=== PATIENT | female | born 1940 | race Caucasian/White ===

== ENCOUNTER 2017-09-12 13:44 | Emergency (ER) | payer OTHER ==
[~2017-09-12] VITALS: Ht 165.1 cm; Wt 68.0 kg
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
[2017-09-12 14:22] LABS: ABSOLUTE BASOPHIL COUNT 0 /CUMM (0.0-0.2); ABSOLUTE EOSINOPHIL COUNT 0.1 /CUMM (0.0-0.7); ABSOLUTE GRANULOCYTE CT 5.4 /CUMM (1.4-6.5); ABSOLUTE LYMPH COUNT 2.1 /CUMM (1.2-3.4); ABSOLUTE MONOCYTE COUNT 0.8 /CUMM (0.10-0.60); BASOPHIL % 0.5 % (0.0-2.0); EOSINOPHIL % 0.7 % (0-5); GRANULOCYTE % 64.5 % (42.2-75.2); HEMATOCRIT 31.8 % (37-47); MEAN CORPUSCULAR HGB 30.6 PG (27.0-31.0); MEAN CORPUSCULAR HGB CONC 33.8 G/DL (33.0-37.0); MEAN CORPUSCULAR VOLUME 90.6 FL (81.0-99.0); MEAN PLATELET VOLUME 6.3 FL (7.4-10.4); PLATELET COUNT 270 /CUMM (130-400); RBC DISTRIBUTION WIDTH 13.9 % (11.5-14.5); RED BLOOD CELL CT 3.51 /CUMM (4.20-5.40); WHITE BLOOD CELL COUNT 8.4 /CUMM (4.8-10.8)
[2017-09-12] MEDS ORDERED: CRESTOR40 M2 PO (17:44)
[2017-09-12] MEDS ORDERED: ANASTROZOLE1 M1 PO (17:44)
[2017-09-12] MEDS ORDERED: LOSARTAN POTASS25 M1 PO (17:44)
[2017-09-12] MEDS ORDERED: DONEPEZIL HCL10 M1 PO (18:02)
[2017-09-12] MEDS ORDERED: SERTRALINE HCL50 MG PO (18:02)
[2017-09-12] MEDS ORDERED: SERTRALINE HCL25 MG PO (18:03)
[2017-09-12] MEDS ORDERED: FEROSUL220 MG/5 M PO (18:07)
[2017-09-12] MEDS ORDERED: CALTRATE 600 +1 EACH PO (18:07)
[2017-09-12] MEDS ORDERED: DIVALPROEX SOD250 M2 PO (18:08)
[2017-09-12] MEDS ORDERED: LORAZEPAM0.5 M1 PO (18:16)
[2017-09-12] MEDS ORDERED: MACROBID 100 M100 MG PO (18:56)
[2017-09-12] MEDS ORDERED: DEPAKOTE ER250 M1 PO (18:56)
[2017-09-12 19:10] VITALS: BP 147/85
[2017-09-13] MEDS ORDERED: DEPAKOTE250 M1 PO (09:59)
== END 2017-09-12 19:09 ==
LOC: ERH 13:44
PROVIDERS: Internal Medicine
DX: N39.0 Urinary tract infection, site not specified (principal); G30.9 Alzheimer's disease, unspecified
CPT/HCPCS: 80307; 81001; 87086

== ENCOUNTER 2017-11-16 11:24 | Observation (INO) | payer OTHER, MEDICARE ==
[~2017-11-16] VITALS: Ht 152.4 cm; Wt 54.4 kg
[~2017-11-16 11:24] MED LIST: ANASTROZOLE1 M1 PO; CALTRATE 600 +1 EACH PO; CRESTOR40 M2 PO; DEPAKOTE ER250 M1 PO; DEPAKOTE250 M1 PO; DEPAKOTE500 M1 PO; DIVALPROEX SOD250 M2 PO; DONEPEZIL HCL10 M1 PO; FEROSUL220 MG/5 M PO; LORAZEPAM0.5 M1 PO; LOSARTAN POTASS25 M1 PO; MACROBID 100 M100 MG PO; SERTRALINE HCL25 MG PO; SERTRALINE HCL50 MG PO
--- NOTE | 2017-11-16 11:55 | ED AMS/SEIZURE/WEAK/DIZZY ---
See Addendum History of Present Illness General Chief Complaint: Altered Mental Status Stated Complaint: AMS Source: family, old records, EMS Exam Limitations: dementia, nonverbal Vital Signs & Intake/Output Vital Signs & Intake/Output Vital Signs Date Time Temp Pulse Resp B/P B/P Pulse O2 O2 Flow FiO2 Mean Ox Delivery Rate 11/18 612 98.1 78 18 146/65 98 Room Air 11/18 0023 80 18 129/86 96 Room Air 11/17 2100 98.0 87 20 144/64 96 Room Air 11/17 1837 90 18 145/67 95 Room Air / 1541 97.0 72 18 145/72 95 Room Air 11/17 1306 97.0 63 18 164/64 92 Room Air Allergies Coded Allergies: lactose (PER PAPERWORK FROM FACILITY 09/12/17) Reconcile Medications Anastrozole 1 MG TABLET 1 TAB PO DAILY BREAST CANCER (Reported) Calcium Carbonate/Vitamin D3 (Caltrate 600 + D Tablet) (Unknown Strength) TABLET (Unknown Dose) PO BID SUPPLEMENT (Reported) Divalproex Sodium (Depakote) 500 MG TABLET.DR 1 TAB PO BID MENTAL HEALTH ( Reported) Donepezil HCl 10 MG TABLET 1 TAB PO DAILY MEMORY (Reported) Ferrous Sulfate (Ferosul) 220 MG (44 MG IRON)/5 ML SOLUTION 330 MG PO DAILY SUPPLEMENT (Reported) Lorazepam 0.5 MG TABLET 0.5 TAB PO BID PRN ANXIETY (Reported) Losartan Potassium 25 MG TABLET 1 TAB PO DAILY BP (Reported) Rosuvastatin Calcium (Crestor) 40 MG TABLET 1 TAB PO DAILY CHOLESTEROL ( Reported) Sertraline HCl 50 MG TABLET 1.5 TAB PO DAILY MENTAL HEALTH (Reported) Triage Note: RECEIVED 77 YO FEMALE BIBA FROM [facility], DEMENTIA ALCAZAR. PT WAS FOUND ON FLOOR THIS AM NEXT TO BED. ACCORDING TO SOUND ASSISTANT REPORT, PT HAS NO OBVIOUS INJURY. PT ARRIVES CONFUSED, NOT RESPONDING TO COMMAND. ACCORDING TO DAUGHTER, PT WAS HERE 2 DAYS AGO AND DISCHARGED BACK TO FACILITY. DAUGHTER STATES THIS HAS BEEN HER BASELINE MENTAL STATUS LATELY. Triage Nurses Notes Reviewed? yes Onset: Abrupt Duration: day(s): (1), constant Timing: recent history Injury Environment: home Severity: moderate Severity Numbers: 1 No Modifying Factors: none Associated Symptoms: DENIES HPI: 77-year-old female history of dementia presents after she had an unwitnessed fall found next to her bed this morning. Patient was seen over the weekend for a similar episode. Family is at bedside, they state she was easily started on Ativan 0.5 mg twice a day for agitation and aggression towards other group home residents and that since then she has been more lethargic and non-verbal. No obvious injury from the fall today she had a unremarkable workup performed over the weekend from her previous fall however the family states that they do not believe she is safe at the assisted living she is currently at, secondary to her falls and dementia (Kahlil Jj) Past History Travel History Traveled to [place] past 21 day No Medical History Any Pertinent Medical History? see below for history Neurological: dementia, Parkinson's disease EENT: NONE Cardiovascular: hypertension, hyperlipidemia Respiratory: NONE Gastrointestinal: NONE Hepatic: NONE Renal: NONE Musculoskeletal: NONE Psychiatric: NONE Endocrine: NONE Blood Disorders: anemia Cancer(s): MALIGNANT NEOPLASM OF BREAST Surgical History Surgical History: non-contributory Psychosocial History What is your primary language Albanian Tobacco Use: Never used Family History Hx Contributory? No (Kahlil Jj) Review of Systems Review of Systems Constitutional: Reports: see HPI. Comments Review of systems: Obtained from the patient's daughter and family Constitutional, no chills no fever, (+) malaise HEENT: no sore throat no congestion Cardiovascular: No chest pain Skin: no rashes, no change in skin Respiratory: No dyspnea no cough GI: No nausea no vomiting, no diarrhea, :no frequency Muscle skeletal: No joint pain, no back pain Neurologic: , no headache Heme/endocrine: No bruising (Kahlil Jj) Physical Exam Physical Exam General Appearance: cachetic Comments: Cachectic female in no acute distress HEENT: Normal EENT exam; PERRL, EOMI, no nystagmus. HEAD is atraumatic. moist mucous membranes. Neck: Supple, nontender no signs of trauma no ecchymosis normal range of motion without pain or tenderness Back: No signs of trauma or ecchymosis Nontender, no CVA tenderness. Full range of motion Cardiovascular: Regular rate and rhythms no murmurs rubs Respiratory: Chest nontender.There were no bony deformities, no asymmetry. No respiratory distress. Patient speaking in full complete sentences. Breath sounds clear to auscultation bilaterally: NO W/R/R Abdomen: Soft, nontender nondistended, no appreciable organomegaly. Normal bowel sounds. No rebound/guarding, Extremity: No edema, full range of motion of extremities, normal and equal pulses bilaterally, 5 out of 5 strength noted to bilateral upper and lower extremities Neuro: Alert oriented x0, motor sensory normal, There were no obvious focal neurologic abnormalities. Skin: No appreciable rash on exposed skin, skin is warm and dry. Psych: Mood and affect is normal, memory and judgment is normal. Core Measures ACS in differential dx? No CVA/TIA Diagnosis No Sepsis Present: No Sepsis Focused Exam Completed? No (Portillo PASCUAL,Kahlil) Progress Differential Diagnosis: arrythmia, anemia, CVA/stroke, dehydration, drug intoxication, electrolyte imbalance, GI bleed, hypoglycemia, intracranial Hem., intracranial mass/tumor, UTI/pyelo, vertebrobasilar insuff Plan of Care: Orders Procedure Date/time Status Discharge Patient 11/18 1016 Active Continuous Observation Monitor 11/18 0852 Active Theraputic Activities 15 Min 11/18 UNK Complete Neuromuscular Re-Ed 15Min Ea 11/18 UNK Complete Theraputic Activities 15 Min 11/17 UNK Complete MOBILITY GOAL STATUS 11/17 UNK Complete MOBILITY CURRENT STATUS 11/17 UNK Complete PT EVAL LOW COMPLEX 20 MIN 11/17 UNK Complete Current Medications Sig/Venus Start time Last Medication Dose Stop Time Status Admin Atorvastatin Calcium 40 MG 1700 11/17 1700 AC (Lipitor) Divalproex Sodium 500 MG BID 11/16 2200 AC 11/17 (Depakote) 2300 Donepezil HCl 10 MG DAILY 11/16 184 AC 11/18 (Aricept) 0836 Ferrous Sulfate 225 MG DAILY 11/16 184 AC Sertraline HCl 75 MG DAILY 11/16 184 AC (Zoloft) Anastrozole 1 MG DAILY 11/16 184 AC (Arimidex) Losartan Potassium 25 MG DAILY 11/16 184 AC (Cozaar) Labs ordered old records reviewed. I discussed with the patient'S daughter and family her CAT scan and lab results I discussed with them the esophageal mass on CT finding which they're unaware of patient is DNR and they're not wishing to seek treatment for this at this time Case management at bedside discussed options the family has an appointment with [facility] tomorrow which they would like to go to we'll have physical therapy see her in the morning as well 1600 pt resting in nad 1830 unable to obtain ekg as pt attempting to pinch staff, seth po ordedred. Case discussed with and signed out to Dr. Serrano at 9 PM pending case management physical therapy consult in the morning Diagnostic Imaging: Viewed by Me: CT Scan. Discussed w/RAD: CT Scan. Radiology Impression: PATIENT: ARLEEN MAURER PRESENT AGE: 77 PATIENT ACCOUNT NO: [id number] : 39 LOCATION: [facility] ORDERING PHYSICIAN: Kahlil PASCUAL SERVICE DATE: 11/16/17 EXAM TYPE: CAT - CT ABD & PELVIS W/O IV CONTRAS; CT CHEST WO IV CONTRAST EXAMINATION: CT OF CHEST, ABDOMEN AND PELVIS WITHOUT CONTRAST CLINICAL INFORMATION: Trauma status post fall with dementia. COMPARISON: None. TECHNIQUE: Multidetector volumetric imaging was performed from the superior aspect of the liver through the pubic symphysis. Sagittal and coronal reformatted images were obtained on the technologist's workstation. DLP: 429.88 mGy-cm FINDINGS: CHEST CT: Lungs are clear. No infiltrates effusions or lung masses are seen. A moderate-sized hiatal hernia is present. Atherosclerotic changes are present in the aorta with calcifications present. Calcifications are present also in the proximal great vessels. Moderate coronary artery calcification is present. No pleural effusions are seen. Examination of the chest wall demonstrates postoperative changes in the left breast. No suspicious masses are seen. Marked degenerative change is noted in the spine. ABDOMINAL CT: LIVER, GALLBLADDER, AND BILIARY TREE: The liver is normal in size, shape, and attenuation. No focal hepatic lesion or biliary ductal dilatation is present. The gallbladder is unremarkable with no evidence of radiopaque gallstones, gallbladder wall thickening, or obvious pericholecystic inflammatory changes. PANCREAS: Unremarkable. SPLEEN: Unremarkable. ADRENAL GLANDS: Unremarkable. KIDNEYS AND URETERS: The kidneys are normal in size, shape, and attenuation. No hydronephrosis, hydroureter, or calculi seen. No perinephric stranding. BLADDER: Unremarkable. GASTROINTESTINAL TRACT: Extensive diverticular changes are noted in the sigmoid with scattered diverticula seen throughout the remainder of the colon. There is no evidence of diverticulitis. The colon is decompressed with very little stool within it. There is no dilatation of small bowel or evidence of bowel obstruction. The appendix is not seen with certainty but there is no evidence to suggest appendicitis. ABDOMINAL WALL: No significant hernia is appreciated. LYMPH NODES: Normal. VASCULAR: Marked atherosclerotic calcifications are noted in the aorta with some milder calcifications in the iliofemoral vessels. PELVIC VISCERA: An anteverted uterus is present. Some calcifications are present and could represent fibroids. No free pelvic fluid is seen. OSSEOUS STRUCTURES: Marked degenerative changes are present in the spine with a compression fracture at L3 with anterior wedging. IMPRESSION: No evidence of acute trauma. Incidental note made of atherosclerotic changes, coronary calcifications, colonic diverticulosis and some possible uterine fibroids. DICTATED BY: Hugo Ly MD DATE/TIME DICTATED:11/16/171417 LIQUOR GRINDER MILL OPERATOR:PIERRE DATE/TIME TRANSCRIBED:1417 CONFIDENTIAL, DO NOT COPY WITHOUT APPROPRIATE AUTHORIZATION. < Electronically signed in Other Vendor System> SIGNED BY: Hugo Ly MD 11/16/17 1451, PATIENT: ARLEEN MAURER PRESENT AGE: 77 PATIENT ACCOUNT NO: [id number] : 39 LOCATION: [facility] ORDERING PHYSICIAN: Kahlil PASCUAL SERVICE DATE: 11/16/17 EXAM TYPE: CAT - CT ABD & PELVIS W/O IV CONTRAS; CT CHEST WO IV CONTRAST EXAMINATION: CT OF CHEST, ABDOMEN AND PELVIS WITHOUT CONTRAST CLINICAL INFORMATION: Trauma status post fall with dementia. COMPARISON: None. TECHNIQUE: Multidetector volumetric imaging was performed from the superior aspect of the liver through the pubic symphysis. Sagittal and coronal reformatted images were obtained on the technologist's workstation. DLP: 429.88 mGy-cm FINDINGS: CHEST CT: Lungs are clear. No infiltrates effusions or lung masses are seen. A moderate-sized hiatal hernia is present. Atherosclerotic changes are present in the aorta with calcifications present. Calcifications are present also in the proximal great vessels. Moderate coronary artery calcification is present. No pleural effusions are seen. Examination of the chest wall demonstrates postoperative changes in the left breast. No suspicious masses are seen. Marked degenerative change is noted in the spine. ABDOMINAL CT: LIVER, GALLBLADDER, AND BILIARY TREE: The liver is normal in size, shape, and attenuation. No focal hepatic lesion or biliary ductal dilatation is present. The gallbladder is unremarkable with no evidence of radiopaque gallstones, gallbladder wall thickening, or obvious pericholecystic inflammatory changes. PANCREAS: Unremarkable. SPLEEN: Unremarkable. ADRENAL GLANDS: Unremarkable. KIDNEYS AND URETERS: The kidneys are normal in size, shape, and attenuation. No hydronephrosis, hydroureter, or calculi seen. No perinephric stranding. BLADDER: Unremarkable. GASTROINTESTINAL TRACT: Extensive diverticular changes are noted in the sigmoid with scattered diverticula seen throughout the remainder of the colon. There is no evidence of diverticulitis. The colon is decompressed with very little stool within it. There is no dilatation of small bowel or evidence of bowel obstruction. The appendix is not seen with certainty but there is no evidence to suggest appendicitis. ABDOMINAL WALL: No significant hernia is appreciated. LYMPH NODES: Normal. VASCULAR: Marked atherosclerotic calcifications are noted in the aorta with some milder calcifications in the iliofemoral vessels. PELVIC VISCERA: An anteverted uterus is present. Some calcifications are present and could represent fibroids. No free pelvic fluid is seen. OSSEOUS STRUCTURES: Marked degenerative changes are present in the spine with a compression fracture at L3 with anterior wedging. IMPRESSION: No evidence of acute trauma. Incidental note made of atherosclerotic changes, coronary calcifications, colonic diverticulosis and some possible uterine fibroids. DICTATED BY: Hugo Ly MD DATE/TIME DICTATED:11/16/171417 LIQUOR GRINDER MILL OPERATOR:PIERRE DATE/TIME TRANSCRIBED:1417 CONFIDENTIAL, DO NOT COPY WITHOUT APPROPRIATE AUTHORIZATION. < Electronically signed in Other Vendor System> SIGNED BY: Hugo Ly MD 11/16/17 1451, PATIENT: ARLEEN MAURER PRESENT AGE: 77 PATIENT ACCOUNT NO: [id number] : 39 LOCATION: [facility] ORDERING PHYSICIAN: Kahlil PASCUAL SERVICE DATE: 11/16/17 EXAM TYPE: CAT - CT CERV SPINE WO IV CONTRAST; CT HEAD WO IV CONTRAST EXAMINATION: CT HEAD AND CERVICAL SPINE CLINICAL INFORMATION: Trauma status post fall. History dementia. COMPARISON: CT head 11/13/2017. TECHNIQUE: Drum Straightener images were obtained. CT acquisition of the head and cervical spine was performed without intravenous administration of contrast. Data was reformatted into multiplanar images at the acquisition workstation. DLP: 1015.12 mGy-cm. FINDINGS: Head: There is no acute intracranial hemorrhage or abnormal extra-axial collection. No intracranial mass effect or midline shift. Lateral and third ventricles are proportionate to the subarachnoid spaces. No hydrocephalus. There are ill-defined foci of hypoattenuation throughout the periventricular white matter that most likely represent a chronic manifestation of small vessel ischemia. Resendez-white matter differentiation is otherwise grossly preserved and there is no is acute territorial infarct. The calvarium and skull base are intact. Mastoid air cells and middle ear cavities are well-aerated. Visualized paranasal sinuses are well- aerated. Cervical spine: There is a slight anterolisthesis of C2 on C3 and C7 on T1 that appears to be related to advanced facet degenerative changes at these 2 levels. The C2 and C3 vertebral segments are chronically fused across the left C2-C3 facet joint. Vertebral body heights are preserved. There is no evidence of acute fracture. No abnormal prevertebral soft tissue swelling. Central disc osteophyte complexes cause indentation of the ventral thecal sac at multiple levels. There is at least moderate canal stenosis at the levels of C3-C4, C4-C5, and C5-C6. There are varying degrees of neuroforaminal encroachment related to uncovertebral joint spurring and facet degenerative change. Soft tissues of the neck are unremarkable. There is circumferential thickening within the esophagus at the cervicothoracic junction. Visualized lungs are clear. IMPRESSION: Head: No acute intracranial hemorrhage. There are numerous chronic small vessel ischemic changes within the periventricular white matter. No evidence of acute territorial infarct or hemorrhage. Cervical spine: No acute cervical spine fracture. There is circumferential thickening suggesting an esophageal mass at the cervicothoracic junction. A dedicated endoscopic evaluation or a fluoroscopic esophagram is recommended for better anatomic characterization of this finding. DICTATED BY: Andry Bermudez MD DATE/TIME DICTATED:11/16/171334 LIQUOR GRINDER MILL OPERATOR:PIERRE DATE/TIME TRANSCRIBED:11/16/171334 CONFIDENTIAL, DO NOT COPY WITHOUT APPROPRIATE AUTHORIZATION. <Electronically signed in Other Vendor System> SIGNED BY: Andry Bermudez MD 11/16/17 1345 Initial ED EKG: none Hand-Off Endorsed To: Gabo Serrano MD Endorsed Time: 2100 Pending: consult (case management, pt consult) (Kahlil Jj) Hand-Off Endorsed To: Fredis Pham MD Endorsed Time: 0700 Pending: consult (Gabo Serrano MD) Hand-Off Endorsed To: Russ Barrow DO Endorsed Time: 1500 Pending: consult (Fredis Pham MD) Departure Departure Condition: Stable Referrals: Xu Rider MD (PCP/Family) Departure Forms: Customer Survey General Discharge Information Observation Note Spoke With: Emma ARIAS,Ayo Place Patient In: ED Observation Rationale for Observation: My rational for observation is as follows gentle hydration, neuro checks, pt/ case management consult for possible placement (Kahlil Jj) Departure Clinical Impression Primary Impression: Dementia Secondary Impressions: Esophageal mass, Fall (Gabo Serrano MD) Departure Disposition: [facility] (AC[facility]) (Fredis Pham MD) Departure Comments 11/17/17 6:10 PM Patient was signed out to me by Dr. Pham at 3 PM. She is pending placement in a geriatric psychiatric center. She will be signed out to Dr. Serrano 11 PM. (Russ Barrow DO) ED Attending Observation Initial Observation Note: I have seen and personally examined ARLEEN MAURER on 11/16/17 at 2252. I agree with the current emergency department documentation. The disposition (admission or discharge) is uncertain at this time, she needs a period of observation for the following reason(s): pt with dementia, unsteady gait... merits PT and case management eval to consider placement. The ED Nurse caring for this patient has been personally informed as to what the patient is being observed for. (Gabo Serrano MD) Observation Re-Evaluation: I have reevaluated ARLEEN AMURER on 11/17/17 at 0718. The physical findings that support the continued need to observe this patient include [PT RESTING COMFORTABLY. AWAITING PT AND CASE MANAGEMENT DISPO.]. Patient refused to work with physical therapy. Patient will have a crisis consultation for geripsych and then elijah swill discuss with case management to decide disposition. Observation Discharge: I have reevaluated ARLEEN MAURER on 11/18/17 at 1016. The patient is: (): Stable for discharge (): To be admitted to Nursing Floor (): To be placed in Observation on Nursing Floor ([X]): For transfer to other facility The patient was being observed for [GERIPSYCH] As a result of that observation, I have determined [TRANSFER TOINPATIENT GERIPSYCH]. (Fredis Pham MD) merits PT and case management eval to consider placement. The ED Nurse caring for this patient has been personally informed as to what the patient is being observed for. (Gabo Serrano MD) Observation Re-Evaluation: I have reevaluated ARLEEN MAURER on 11/17/17 at 0718. The physical findings that support the continued need to observe this patient include [PT RESTING COMFORTABLY. AWAITING PT AND CASE MANAGEMENT DISPO.]. Patient refused to work with physical therapy. Patient will have a crisis consultation for geripsych and then elijah aguilar discuss with case management to decide disposition. (Fredis Pham MD) I agree with the current emergency department documentation. The disposition (admission or discharge) is uncertain at this time, she needs a period of observation for the following reason(s): pt with dementia, unsteady gait... merits PT and case management eval to consider placement. The ED Nurse caring for this patient has been personally informed as to what the patient is being observed for. (Gabo Serrano MD) Observation Re-Evaluation: I have reevaluated ARLEEN MAURER on 11/17/17 at 0718. The physical findings that support the continued need to observe this patient include [PT RESTING COMFORTABLY. AWAITING PT AND CASE MANAGEMENT DISPO.]. Patient refused to work with physical therapy. Patient will have a crisis consultation for geripsych and then elijah aguilar discuss with case management to decide disposition. (Fredis Pham MD) Patient refused to work with physical therapy. Patient will have a crisis consultation for geripsych and then elijah aguilar discuss with case management to decide disposition. (Fredis Pham MD)
--- NOTE | 2017-11-16 13:45 | CT SCAN REPORT ---
EXAMINATION: CT HEAD AND CERVICAL SPINE CLINICAL INFORMATION: Trauma status post fall. History dementia. COMPARISON: CT head 11/13/2017. TECHNIQUE: Rehabilitation Services Manager images were obtained. CT acquisition of the head and cervical spine was performed without intravenous administration of contrast. Data was reformatted into multiplanar images at the acquisition workstation. DLP: 1015.12 mGy-cm. FINDINGS: Head: There is no acute intracranial hemorrhage or abnormal extra-axial collection. No intracranial mass effect or midline shift. Lateral and third ventricles are proportionate to the subarachnoid spaces. No hydrocephalus. There are ill-defined foci of hypoattenuation throughout the periventricular white matter that most likely represent a chronic manifestation of small vessel ischemia. Resendez-white matter differentiation is otherwise grossly preserved and there is no is acute territorial infarct. The calvarium and skull base are intact. Mastoid air cells and middle ear cavities are well-aerated. Visualized paranasal sinuses are well-aerated. Cervical spine: There is a slight anterolisthesis of C2 on C3 and C7 on T1 that appears to be related to advanced facet degenerative changes at these 2 levels. The C2 and C3 vertebral segments are chronically fused across the left C2-C3 facet joint. Vertebral body heights are preserved. There is no evidence of acute fracture. No abnormal prevertebral soft tissue swelling. Central disc osteophyte complexes cause indentation of the ventral thecal sac at multiple levels. There is at least moderate canal stenosis at the levels of C3-C4, C4-C5, and C5-C6. There are varying degrees of neuroforaminal encroachment related to uncovertebral joint spurring and facet degenerative change. Soft tissues of the neck are unremarkable. There is circumferential thickening within the esophagus at the cervicothoracic junction. Visualized lungs are clear. IMPRESSION: Head: No acute intracranial hemorrhage. There are numerous chronic small vessel ischemic changes within the periventricular white matter. No evidence of acute territorial infarct or hemorrhage. Cervical spine: No acute cervical spine fracture. There is circumferential thickening suggesting an esophageal mass at the cervicothoracic junction. A dedicated endoscopic evaluation or a fluoroscopic esophagram is recommended for better anatomic characterization of this finding.
[2017-11-16 14:05] LABS: ABSOLUTE BASOPHIL COUNT 0 /CUMM (0.0-0.2); ABSOLUTE EOSINOPHIL COUNT 0 /CUMM (0.0-0.7); ABSOLUTE GRANULOCYTE CT 5.3 /CUMM (1.4-6.5); ABSOLUTE LYMPH COUNT 1.5 /CUMM (1.2-3.4); ABSOLUTE MONOCYTE COUNT 0.5 /CUMM (0.10-0.60); BASOPHIL % 0.3 % (0.0-2.0); EOSINOPHIL % 0.1 % (0-5); HEMATOCRIT 35.1 % (37-47); MEAN CORPUSCULAR HGB 30.5 PG (27.0-31.0); MEAN CORPUSCULAR HGB CONC 33.5 G/DL (33.0-37.0); MEAN CORPUSCULAR VOLUME 90.9 FL (81.0-99.0); MEAN PLATELET VOLUME 6.8 FL (7.4-10.4); PLATELET COUNT 240 /CUMM (130-400); RBC DISTRIBUTION WIDTH 14.4 % (11.5-14.5); RED BLOOD CELL CT 3.86 /CUMM (4.20-5.40); WHITE BLOOD CELL COUNT 7.3 /CUMM (4.8-10.8)
--- NOTE | 2017-11-16 14:51 | CT SCAN REPORT ---
EXAMINATION: CT OF CHEST, ABDOMEN AND PELVIS WITHOUT CONTRAST CLINICAL INFORMATION: Trauma status post fall with dementia. COMPARISON: None. TECHNIQUE: Multidetector volumetric imaging was performed from the superior aspect of the liver through the pubic symphysis. Sagittal and coronal reformatted images were obtained on the technologist's workstation. DLP: 429.88 mGy-cm FINDINGS: CHEST CT: Lungs are clear. No infiltrates effusions or lung masses are seen. A moderate-sized hiatal hernia is present. Atherosclerotic changes are present in the aorta with calcifications present. Calcifications are present also in the proximal great vessels. Moderate coronary artery calcification is present. No pleural effusions are seen. Examination of the chest wall demonstrates postoperative changes in the left breast. No suspicious masses are seen. Marked degenerative change is noted in the spine. ABDOMINAL CT: LIVER, GALLBLADDER, AND BILIARY TREE: The liver is normal in size, shape, and attenuation. No focal hepatic lesion or biliary ductal dilatation is present. The gallbladder is unremarkable with no evidence of radiopaque gallstones, gallbladder wall thickening, or obvious pericholecystic inflammatory changes. PANCREAS: Unremarkable. SPLEEN: Unremarkable. ADRENAL GLANDS: Unremarkable. KIDNEYS AND URETERS: The kidneys are normal in size, shape, and attenuation. No hydronephrosis, hydroureter, or calculi seen. No perinephric stranding. BLADDER: Unremarkable. GASTROINTESTINAL TRACT: Extensive diverticular changes are noted in the sigmoid with scattered diverticula seen throughout the remainder of the colon. There is no evidence of diverticulitis. The colon is decompressed with very little stool within it. There is no dilatation of small bowel or evidence of bowel obstruction. The appendix is not seen with certainty but there is no evidence to suggest appendicitis. ABDOMINAL WALL: No significant hernia is appreciated. LYMPH NODES: Normal. VASCULAR: Marked atherosclerotic calcifications are noted in the aorta with some milder calcifications in the iliofemoral vessels. PELVIC VISCERA: An anteverted uterus is present. Some calcifications are present and could represent fibroids. No free pelvic fluid is seen. OSSEOUS STRUCTURES: Marked degenerative changes are present in the spine with a compression fracture at L3 with anterior wedging. IMPRESSION: No evidence of acute trauma. Incidental note made of atherosclerotic changes, coronary calcifications, colonic diverticulosis and some possible uterine fibroids.
--- NOTE | 2017-11-17 14:31 | ED PSYCH CRISIS CONSULTATION ---
Crisis Consult Basic Assessment Date of Consult: 11/17/17 Responsible Person/Accompanied By: Zoie Duckworth Insurance Authorization: Insurance #1: Insurance name: MEDICARE A Phone number: Policy number: [id number] Group number: Authorization number: ED Provider: Patient's ED Provider: Kahlil Jj Primary Care Physician: Patient's PCP: Adry ARIAS,Xu Guillen PCP's Chief Complaint: Altered Mental Status Present Illness: Pt is a 77 W/w/f who lives in a [facility] dementia care unit. Pt presents to the ED after an unwitnessed fall found next to her bed this yesterday. Pt had a similar episode over the weekend. Pt has been agitated, lethargic, decrease eating, decreased talking and falling in the context of multiple meds changes. Family is at her bedside and supportive. Pt has been medically cleared. MD Rashmi (neurologist) / Nallely PASCUAL , recent med change 11/11/17. pt was started on ativan and depakote increased. Seen previously 10/14/17 seroquel, zoloft and depakote. Pt was put on Ativan Thursday and pt started having increase falls and decrease functioning. Pt has a mental health hx which her dtr reports as therapist and maybe a Pcp prescribing meds for mood . Pt's mother also had a mental health hx . No known inpt stays. Pt's dtr Zoie fred, reports she is in tx at for bipolar and has been inpt. Dtr is currently on meds and in tx, her providers are aware of her stressors. Dtr has the support of a family friend named Pranav. He is supportive to pt and her dtr and has an understanding of dementia and levels of care. He assists with pt's finances. He is willing to increase pt's care and feels pt has funds for her care. Pt does not have substance abuse hx . Today, pt is in bed with her eyes closed, unable to speak, refusing meds and physical therapy. She was given tylenol and fluids. She is agitated in bed, pulling on her clothing and covers. Pt does not have an active UTI. ON 11/08/17 Pt's friend Pranav visited with her at [facility]. She spoke with him, joked with him and at times spoke words he was not clear of. She did properly verbalize good bye to Pranav, and when he got ready to leave and asked for a kiss. Pt is on Ativan 0.5mg po BID PRN anxiety which seem to have started Wed. Family reports assisted living had asked them to address pt's agitation and aggression with personal care so pt was brought to MD and med were started. It is unclear why family is not using Assited living provider. difficult to assess SI/HI/AH/VH. Discussed pt with MD Rachell who, agreed with pt's need for available [facility] bed. Stop Ativan. Patient's Address: [place] [address] Other Phone Number: Family/Informants Interviewed: pt unable to participate (dtr is POA and Friend helps) Allergies - Coded Allergies: lactose (PER PAPERWORK FROM FACILITY 09/12/17) Current Medications - Scheduled Medications Anastrozole 1 MG TABLET 1 TAB PO DAILY BREAST CANCER #28 (Reported) Entered as Reported by Ayala Geronimo on 09/12/17 174 Calcium Carbonate/Vitamin D3 (Caltrate 600 + D Tablet) (Unknown Strength) TABLET (Unknown Dose) PO BID SUPPLEMENT (Reported) Entered as Reported by Ayala Geronimo on 09/12/17 1807 Divalproex Sodium (Depakote) 500 MG TABLET.DR 1 TAB PO BID MENTAL HEALTH ( Reported) Entered as Reported by Ayala Geronimo on 11/13/17 2227 Donepezil HCl 10 MG TABLET 1 TAB PO DAILY MEMORY #28 (Reported) Entered as Reported by Ayala Geronimo on 09/12/17 1802 Ferrous Sulfate (Ferosul) 220 MG (44 MG IRON)/5 ML SOLUTION 330 MG PO DAILY SUPPLEMENT (Reported) Entered as Reported by Ayala Geronimo on 09/12/17 180 Losartan Potassium 25 MG TABLET 1 TAB PO DAILY BP #28 (Reported) Entered as Reported by Ayala Geronimo on 09/12/17 1744 Rosuvastatin Calcium (Crestor) 40 MG TABLET 1 TAB PO DAILY CHOLESTEROL #28 ( Reported) Entered as Reported by Ayala Geronimo on 09/12/17 1744 Sertraline HCl 50 MG TABLET 1.5 TAB PO DAILY MENTAL HEALTH #28 (Reported) Entered as Reported by Ayala Geronimo on 09/12/17 1802 Scheduled PRN Medications Lorazepam 0.5 MG TABLET 0.5 TAB PO BID PRN ANXIETY #28 (Reported) Entered as Reported by Ayala Geronimo on 09/12/17 1816 Laboratory Results: Laboratory Tests 11/16/17 1545: Urinalysis LIGHT H, Urine Color YEL, Urine Clarity HAZY H, Urine pH 6.0, Ur Specific [place] >= 1.030, Urine Protein 30 H, Urine Ketones 15 H, Urine Nitrite NEG, Urine Bilirubin NEG@ICTO, Urine Urobilinogen 0.2, Ur Leukocyte Esterase NEG, Ur Microscopic SEDIMENT EXAMINED, Urine RBC 3-5, Urine WBC 10-15 H, Ur Epithelial Cells MOD H, Urine Bacteria RARE H, Granular Casts 1-3 H, Urine Mucus FEW, Urine Hemoglobin MOD H, Urine Glucose NEG Microbiology 11/16 2022 URINE ROUT: Urine Culture - CAN Cancelled: Cancelled via OE: Error 11/16 1545 URINE ROUT: Urine Culture - RES (Rimma Sawyer LCSW) Past History Past Medical History Neurological: dementia, Parkinson's disease EENT: NONE Cardiovascular: hypertension, hyperlipidemia Respiratory: NONE Gastrointestinal: NONE Hepatic: NONE Renal: NONE, urinary incontinence Musculoskeletal: NONE Psychiatric: NONE Endocrine: NONE Blood Disorders: anemia Cancer(s): pancreatic cancer, MALIGNANT NEOPLASM OF BREAST Past Surgical History Surgical History: non-contributory Psychosocial History Physical Limitations (Interventions): decreased walking this week Psychiatric Treatment History Psych Treatment Psychiatric Treatment No Inpatient Treatment No Diagnosis by History: dementia Substance Use/Abuse History Drug Use/Abuse Substances Used/Abused No Substance Abuse Treatment Substance Abuse Treatment Past Substance Abuse [place] No (Rimma Sawyer LCSW) Current Mental Status Mental Status Orientation: Confused Affect: Anxious (agitated ) Speech: Incoherent Neuro-vegetative: Appetite Decreased, Energy Decreased Appearance Appearance- Dress/Hygiene: fair grooming and poor teeth Behaviors Thought Process: limited ability to speak due to dementia Thought Content: dementia Memory: Impaired Insight: Poor SI/HI Risk Assessment Past Suicidal Ideation/Attempts No Current Suicidal Ideation/Att No Past Homicidal Ideation/Att: No Current Homicidal Ideation/Attempts No PTSD Checklist PTSD Done? 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 (Rimma Sawyer LCSW) Departure Disposition Psych Medical Clearance Date: 11/17/17 Time Started: 153 Time Ended: 1529 Psychiatrist Consulted: Gabo Velez MD Date Disposition Established: 11/17/17 Time Disposition Established: 1629 Plan for Disposition - Modality: Bed Search (leonor ) Rationale for Disposition: need med assessment to improve mental status and functioning. Dtr and friend agreable to bed search. [facility] reported pt can retunr to facility and may need to have increase private care. family agreeable to increase care and funds are available Type of IP Admission: PEC (leonor) Referrals Adry ARIAS,Xu Guillen (PCP/Family) (Rimma Sawyer LCSW) Addendum Note Addendum 11/18/17: Crisis attempted to meet with patient this morning for re-evaluation. Pt was rolling around the bed. She was unable to focus on rn clinical review or answer questions asked by crisis or the sitter. Crisis followed up with [facility]on[facility] psych bed search from last evening. Pt was accepted to [facility] in [place]. Crisis informed Dr. Pham and completed transfer paperwork. RN was provided with number for nurse to nurse report. Original PEC was given to health unit coordinatorFrancia Aj to set up [facility] transportation. Crisis spoke with daughter, Zoie Duckworth ([phone]) on two occassions. First was to inform her that pt would be transferred to [facility]. Zoie was concerned about the distance. Explained to her that there were no beds available at [facility] or [facility] today and that [facility] has 1 bed available. 2nd call was related to daughter's anxiety related to pt being transfered. Explained pt would be transferred this morning to [facility]. Dr. Lang was informed and approved transfer. Crisis spoke to Leigh at [facility] ([phone] to inform her that pt was being transferred to [facility]. (Dana DAVIS,Hellen)
[2017-11-18 06:13] VITALS: BP 146/65
== END 2017-11-19 19:00 | disposition other institution (70) ==
LOC: ERH 11:24 → ERHI 18:02
PROVIDERS: Physician Assistant Medical
DX: R41.82 Altered mental status, unspecified (principal); F02.80 Dementia in other diseases classified elsewhere, unspecified severity, without behavioral disturbance, psychotic disturbance, mood disturbance, and anxiety; Z91.81 History of falling; G20 Parkinson's disease; R64 Cachexia; D64.9 Anemia, unspecified; Z85.3 Personal history of malignant neoplasm of breast; K22.9 Disease of esophagus, unspecified
CPT/HCPCS: 74176; 81001; 87086; 96374; 97112-GP; 97161-GP; 97530-GP; G0378; G0463; G8978-GP; G8979-GP; J0131